=== PATIENT | male | born 1970 | race Caucasian/White ===

== ENCOUNTER 2016-07-10 22:57 | Emergency (ER) | payer OTHER ==
[~2016-07-10] VITALS: Ht 185.4 cm; Wt 82.8 kg
[~2016-07-10 22:57] MED LIST: CEFDINIR300 MG PO; ULTRACET1 TABLET PO
[2016-07-10 23:02] VITALS: BP 126/81
[2016-07-11] MEDS ORDERED: TOBREX5 ML RIGHT EYE (00:45)
== END 2016-07-11 01:07 | disposition home or self-care (01) ==
LOC: EME 22:57
DX: H11.31 Conjunctival hemorrhage, right eye (principal); W27.0XXA Contact with workbench tool, initial encounter; Y93.E9 Activity, other interior property and clothing maintenance
CPT/HCPCS: 70480; 99281; 99283